=== PATIENT | male | born 1985 | race Caucasian/White ===

== ENCOUNTER → 2017-09-05 | Outpatient (CLI) | payer BC ==
--- NOTE | 2017-09-05 07:52 | US ---
EXAMINATION TYPE: US abdomen limited DATE OF EXAM: 09/05/2017 COMPARISON: NONE CLINICAL HISTORY: R10.9 abdominal pain Unspecified. Palpable left iliac crest noted x 2 months and ca uses pain and burning with exertion. At patient's palpable is solid, oval, isoechoic to slightly hyperechoic mass = 1.1 x 1.7 x 0.6cm and does not change in appearance with Valsalva Maneuver, nor does surrounding tissue change with exertio n motion of abdomen. IMPRESSION: Isoechoic to slightly hyperechoic 1.7 cm mass corresponding to the patient's palpable ab normality. This may represent a lipoma as it is circumscribed on most images or evolving ecchymosis/h ematoma/fat necrosis as few images demonstrate slightly irregular borders. Therefore short-term follo w-up is recommended to ensure resolution if there is continued clinical concern in 1-3 months.
== END | disposition home or self-care (01) ==
LOC: RADUSWWP 07:02
PROVIDERS: ATTEND Family Medicine
DX: R10.9 Unspecified abdominal pain (principal)
CPT/HCPCS: 76705

== ENCOUNTER → 2017-12-14 | Day surgery (SDC) | payer BC ==
[2017-12-09 15:23] VITALS: BMI 35.9
[~2017-12-14] MED LIST: DEXAMETHASONE SOD PHOSPHATE 10 MG/ML 1 ML VIAL IV ONE; HEPARIN SODIUM,PORCINE 5,000 UNIT/ML 1 ML VIAL SQ ONE; HYDROcodone/APAP 5-325MG 1 EACH TAB PO PRN; LACTATED RINGERS 1,000 ML IV SCH; LIDOCAINE 1% 20 ML VIAL (10MG/ML) FOR IV START INTRADERMA PRN; LIDOCAINE 1%-EPI 1:100,000 30 ML VIAL SQ ONE; MIDAZOLAM 2 MG/2 ML VIAL IV PRN; MIDAZOLAM 2 MG/2 ML VIAL ONE; NALOXONE 0.4 MG/ML 1 ML VIAL IV PRN; ONDANSETRON 4 MG/2 ML VIAL IVP ONE; PROPOFOL 10 MG/ML 20 ML VIAL IV ONE; Pre Op ABX Message 1 EACH MISC MISCELLANE ONE; fentaNYL (PF) 50 MCG/ML 2 ML AMP IV PRN; fentaNYL (PF) 50 MCG/ML 2 ML AMP ONE
[2017-12-14 07:58] VITALS: TEMP 98.1
--- NOTE | 2017-12-14 09:34 | P.OP ---
Date of Procedure: 12/14/17 Procedure(s) Performed: PREOPERATIVE DIAGNOSIS: Left abdominal and left arm mass POSTOPERATIVE DIAGNOSIS: Same PROCEDURE: Excision above lesions SURGEON: Delano EBL: Minimal ANESTHESIA: Sedation COMPLICATIONS: None OPERATIVE PROCEDURE: Patient place in the operating table in the supine position. The patient was sedated per anesthesia. The left abdominal wall in the left arm were prepped and draped in the usual sterile fashion. The skin was localized at both locations using 1% lidocaine with epi. A small incision was made overlying the left lower quadrant abdominal wall mass. Dissection through the subcutaneous tissues took place using electrocautery. The lipomatous mass was excised at that time. This measured 2.5 cm in size. The subcutaneous tissues were closed using 3-0 Vicryl sutures and the skin using a running 4-0 Monocryl stitch. The left arm was then addressed in a similar fashion. A small incision was made overlying the palpable mass. This lesion measured about 1 cm. This was fully excised. The skin was closed using a 4-0 Monocryl stitch. Steri-Strips and sterile dressings were applied. DISPOSITION: Stable to recovery room
[2017-12-14 09:39] VITALS: RESP 18
[2017-12-14 09:57] VITALS: BP 105/74; PULSE 65
== END ==
LOC: OR 07:16
PROVIDERS: ATTEND Surgery
DX: D17.1 Benign lipomatous neoplasm of skin and subcutaneous tissue of trunk (principal); D17.22 Benign lipomatous neoplasm of skin and subcutaneous tissue of left arm; F17.210 Nicotine dependence, cigarettes, uncomplicated; Z88.6 Allergy status to analgesic agent; Z91.018 Allergy to other foods; Z88.0 Allergy status to penicillin; Z88.2 Allergy status to sulfonamides
CPT/HCPCS: 22902; 24075; 88304; J2250; J1644; J1100; J2405; J3010; J2704

== ENCOUNTER → 2018-09-12 | Outpatient (CLI) | payer BC ==
--- NOTE | 2018-09-12 14:48 | CT ---
EXAMINATION TYPE: CT sinus wo con DATE OF EXAM: 09/12/2018 COMPARISON: Sinus and ear infections HISTORY: Bilateral ear infections and sinus infection x [address] DLP: 660.9 mGycm. Automated Exposure Control for Dose Reduction was Utilized. TECHNIQUE: CT scan of the sinuses is performed without contrast, axial images are obtained, coronal r eformatted images are also reviewed. FINDINGS: There is a mucous retention cyst involving the inferior left maxillary antrum. Mild mucosal thickening involving the ethmoid air cells. There is a nasal septal deviation.. The ostiomeatal com plex is patent bilaterally on the coronal images. Visualized portion of mastoid air cells show no abnormal opacification. The globes are intact bilate rally. IMPRESSION: 1. Findings compatible with mild chronic sinusitis..
== END ==
LOC: RADCTMAIN 12:50
PROVIDERS: ATTEND Family Medicine
DX: J32.9 Chronic sinusitis, unspecified (principal)
CPT/HCPCS: 70486

== ENCOUNTER 2019-12-01 00:08 | Emergency (ER) | payer BC ==
[2019-12-01 00:14] VITALS: BP 129/84; PULSE 97; RESP 16; TEMP 98.6
[2019-12-01] MEDS ORDERED: ACET/COD 300 MG/30 MG STARTER PACK 6 TAB BTL PO STA (00:22)
--- NOTE | 2019-12-01 00:44 | XR ---
EXAMINATION TYPE: XR ankle complete RT DATE OF EXAM: 12/01/2019 COMPARISON: NONE HISTORY: Pain and swelling TECHNIQUE: 3 views FINDINGS: There is soft tissue swelling over the lateral malleolus. Ankle mortise is anatomic. I see no fracture nor dislocation. Joint spaces are normal. IMPRESSION: Soft tissue swelling. No fracture seen.
--- NOTE | 2019-12-01 01:05 | ED ---
General Adult HPI - General Chief complaint: Extremity Injury, Lower Stated complaint: RT ankle injury Time Seen by Provider: 12/01/19 00:19 Source: patient Mode of arrival: wheelchair Limitations: no limitations - History of Present Illness Initial comments: 34-year-old male patient presents to the emergency department today for evaluation of right ankle pain and swelling. Patient states about a half hour prior to arrival he was stepping out of his jeep, states he caught his heel on the running board which caused him to land hard on the right foot while in was inverted over the lateral aspect. He should states that he heard a snapping sound when this occurred. Patient states he is having difficulty ambulating on the ankle so he presented here for further evaluation. He denies numbness or tingling to the foot. Did have previous fracture and ligament injury to this ankle. He denies falling, hitting his head, losing consciousness. Denies any other injuries. Patient denies any headache, neck pain, back pain, chest pain, shortness of breath, dizziness, weakness, abdominal pain, nausea, vomiting, or difficulties with bowel movements or urination. - Related Data Previous Rx's Medication Instructions Recorded Hydrocodone/Acetaminophen [[place] 1 - 2 each PO Q4HR PRN #15 tab 12/14/17 5-325] Allergies Allergy/AdvReac Type Severity Reaction Status Date / Time NSAIDS (Non-Steroidal Allergy Severe Anaphylaxis Verified 12/01/19 00:14 Anti-Inflamma amoxicillin Allergy Anaphylaxis Verified 12/01/19 00:14 peanut Allergy Unknown Verified 12/01/19 00:14 Penicillins Allergy Anaphylaxis Verified 12/01/19 00:14 Review of Systems ROS Statement: Those systems with pertinent positive or pertinent negative responses have been documented in the HPI. ROS Other: All systems not noted in ROS Statement are negative. Past Medical History Additional Past Medical History / Comment(s): CYSTS TO ABD. AND LT ELBOW History of Any Multi-Drug Resistant Organisms: None Reported Past Surgical History: Adenoidectomy, Appendectomy, Tonsillectomy Additional Past Surgical History / Comment(s): RECONSTRUCTIVE SX TO LT EARDRUM Past Anesthesia/Blood Transfusion Reactions: No Reported Reaction Past Psychological History: No Psychological Hx Reported Past Alcohol Use History: None Reported Past Drug Use History: Marijuana - Past Family History Mother Family Medical History: No Reported History General Exam Limitations: no limitations General appearance: alert, in no apparent distress, other (This is a well- developed, well-nourished adult male patient in no acute distress. Vital signs upon presentation are temperature 98.6F, pulse 97, respiration 16, blood pressure 129/84, pulse ox 100% on room air.) Cardiovascular Exam: Present: regular rate, normal rhythm, normal heart sounds. Absent: systolic murmur, diastolic murmur, rubs, gallop, clicks GI/Abdominal exam: Present: soft, normal bowel sounds. Absent: distended, tenderness, guarding, rebound, rigid Extremities exam: Present: normal inspection, full ROM, tenderness (Right lateral malleolus), normal capillary refill, other (Swelling and tenderness surrounding the right lateral malleolus. There is no fifth metarsal or proximal tib fib tenderness. skin to the right foot is pink, warm, dry. Cap refills less than 3 seconds. Pedal posttibial pulses are 2+ and equal bilaterally.). Absent: pedal edema, joint swelling, calf tenderness Neurological exam: Present: alert, oriented X3, CN II-XII intact Psychiatric exam: Present: normal affect, normal mood Skin exam: Present: warm, dry, intact, normal color. Absent: rash Course Vital Signs 12/01/19 00:09 Temperature 98.6 F Pulse Rate 97 Respiratory 16 Rate Blood Pressure 129/84 O2 Sat by Pulse 100 Oximetry Medical Decision Making - Medical Decision Making 34-year-old male patient presents to the emergency department today for evaluation of right ankle pain and swelling after an injury. Physical examination did reveal soft tissue swelling surrounding the right lateral malleolus. He is also tenderness around this region. No fifth metatarsal or proximal tib-fib tenderness. Neurovascular status is intact. X-ray was obtained and showed no acute fracture. Agent symptoms are consistent with an ankle sprain. We placed in ankle stirrup splint. He is given a prescription for crutches. He is instructed to weight-bear as tolerated. He is instructed to follow up with his primary care physician for recheck in 1-2 days. Is instructed to have repeat x-rays performed in 7-10 days of his pain symptoms persist. He was educated regarding rest, ice, elevation. Return parameters were discussed in detail. He verbalizes understanding and agrees with this plan. - Radiology Data Radiology results: report reviewed, image reviewed 3 views of the right ankle are obtained. Report was reviewed in its entirety. Impression by Dr. Nuno shows soft tissue swelling. No fracture seen. Disposition Clinical Impression: Right ankle sprain Disposition: HOME SELF-CARE Condition: Good Instructions (If sedation given, give patient instructions): Ankle Sprain (ED) Additional Instructions: Rest, ice, elevate the right ankle. Use splint for comfort and support. Follow-up with your primary care physician for recheck in 1-2 days. Have repeat x-rays performed in 7-10 days if pain symptoms persist. Return to the emergency department immediately for any new, worsening, or concerning symptoms. Is patient prescribed a controlled substance at d/c from ED?: No Referrals: Demarcus Womack MD [Primary Care Provider] - 1-2 days Time of Disposition: 01:04
== END 2019-12-01 01:26 | disposition home or self-care (01) ==
LOC: EC 00:08
DX: S93.401A Sprain of unspecified ligament of right ankle, initial encounter (principal); Z88.6 Allergy status to analgesic agent; Z88.0 Allergy status to penicillin; Z91.010 Allergy to peanuts; W18.41XA Slipping, tripping and stumbling without falling due to stepping on object, initial encounter
CPT/HCPCS: 73610; 99283; L4350

== ENCOUNTER → 2020-07-23 | Outpatient (CLI) | payer BC ==
--- NOTE | 2020-07-23 14:12 | US ---
EXAMINATION TYPE: US abdomen complete DATE OF EXAM: 07/23/2020 COMPARISON: NONE CLINICAL HISTORY: R10.11 right upper quad pain. RUQ pain x 1 month, gets worse after eating EXAM MEASUREMENTS: Liver Length: 16.5 cm Gallbladder Wall: 0.2 cm CBD: 0.3 cm Spleen: 12.2 cm Right Kidney: 10.1 x 5.8 x 4.7 cm Left Kidney: 11.0 x 6.0 x 5.7 cm Pancreas: obscured by overlying midline bowel gas Liver: wnl Gallbladder: possible sludge seen Evidence for sonographic Mcallister's sign: no CBD: visualized portions wnl, limited by overlying bowel gas Spleen: wnl Right Kidney: wnl Left Kidney: wnl Upper IVC: wnl Abd Aorta: proximal portion obscured by overlying midline bowel gas, mid and distal portions appear wnl IMPRESSION: 1. Some limitation due to bowel gas. 2. Visualized abdomen ultrasound is otherwise unremarkable.
== END ==
LOC: RADUSWWP 07:37
PROVIDERS: ATTEND Family Medicine
DX: R10.11 Right upper quadrant pain (principal)
CPT/HCPCS: 76700

== ENCOUNTER → 2023-09-27 | Outpatient (CLI) | payer BC ==
--- NOTE | 2023-09-28 07:02 | CT ---
EXAMINATION TYPE: CT iac wo con DATE OF EXAM: 09/27/2023 COMPARISON: NONE HISTORY: Cholesteatoma of tympanum, LT ear CT DLP: 150 mGycm. Automated Exposure Control for Dose Reduction was Utilized. TECHNIQUE: CT scan of internal auditory canal is performed without contrast, thin cut axial images ar e obtained, coronal reformatted images are also reviewed. FINDINGS: The external auditory canals are patent bilaterally. Mastoid air cells show no evidence of abnormal opacification bilaterally. The middle ear ossicles are symmetric and unremarkable. There is no evidence of suspicious surroundi ng soft tissue density to suggest cholesteatoma. The scutum is preserved bilaterally. The cochlea and the semicircular canals are symmetric and unremarkable. Satisfactory superior bony ov er coverage of the superior semicircular canal bilaterally, no dehiscence is evident. Vestibular aque duct and internal carotid canal appear unremarkable. Temporomandibular joints are maintained bilaterally. Visualized paranasal sinuses are grossly clear. Visualized portion brain parenchyma is felt within normal limits. IMPRESSION: No significant abnormality seen to account for patient's symptoms.
== END | disposition home or self-care (01) ==
LOC: RADCTMAIN 12:05
PROVIDERS: ATTEND Otolaryngology Otology & Neurotology
DX: H71.12 Cholesteatoma of tympanum, left ear (principal); H69.93 Unspecified Eustachian tube disorder, bilateral
CPT/HCPCS: 70480

== ENCOUNTER 2024-07-01 02:19 | Emergency (ER) | payer BC ==
[2024-07-01 02:29] VITALS: RESP 18; TEMP 98
--- NOTE | 2024-07-01 02:49 | ED ---
General Adult HPI - General Chief complaint: Chest Pain Stated complaint: Chest heaviness Time Seen by Provider: 07/01/24 02:24 Source: patient, RN notes reviewed, old records reviewed Mode of arrival: ambulatory Limitations: no limitations - History of Present Illness Initial comments: 38-year-old male presenting with chest heaviness. Symptoms began just prior to arrival approximately 2 hours ago. Patient denies history of cardiac disease but states he has a strong family history of CAD. He states he is following with his primary care provider regarding several week history of bilateral hand swelling. Primary care provider is worried about rheumatoid arthritis and workup is pending as an outpatient. He denies swelling in the feet or ankles. Denies vomiting. States he did feel somewhat lightheaded. - Related Data Previous Rx's Medication Instructions Recorded Hydrocodone/Acetaminophen [[place] 1 - 2 each PO Q4HR PRN #15 tab 12/14/17 5-325] Allergies Allergy/AdvReac Type Severity Reaction Status Date / Time NSAIDS (Non-Steroidal Allergy Severe Anaphylaxis Verified 07/01/24 02:29 Anti-Inflamma amoxicillin Allergy Anaphylaxis Verified 07/01/24 02:29 peanut Allergy Unknown Verified 07/01/24 02:29 Penicillins Allergy Anaphylaxis Verified 07/01/24 02:29 ciprofloxacin [From Cipro] AdvReac Unknown Verified 07/01/24 02:29 sulfamethoxazole AdvReac Swelling Verified 07/01/24 02:29 [From Bactrim] trimethoprim [From Bactrim] AdvReac Swelling Verified 07/01/24 02:29 Review of Systems ROS Statement: Those systems with pertinent positive or pertinent negative responses have been documented in the HPI. ROS Other: All systems not noted in ROS Statement are negative. Past Medical History Additional Past Medical History / Comment(s): CYSTS TO ABD. AND LT ELBOW History of Any Multi-Drug Resistant Organisms: None Reported Past Surgical History: Adenoidectomy, Appendectomy, Tonsillectomy Additional Past Surgical History / Comment(s): RECONSTRUCTIVE SX TO LT EARDRUM Past Anesthesia/Blood Transfusion Reactions: No Reported Reaction Past Psychological History: No Psychological Hx Reported Smoking Status: Current every day smoker Past Alcohol Use History: Rare Past Drug Use History: Marijuana - Past Family History Mother Family Medical History: No Reported History General Exam Limitations: no limitations General appearance: alert, in no apparent distress Head exam: Present: atraumatic, normocephalic Eye exam: Present: normal appearance, PERRL ENT exam: Present: normal exam Neck exam: Present: normal inspection. Absent: tenderness, meningismus Respiratory exam: Present: normal lung sounds bilaterally. Absent: respiratory distress, wheezes Cardiovascular Exam: Present: regular rate, normal rhythm GI/Abdominal exam: Present: soft. Absent: distended, tenderness, guarding Extremities exam: Present: normal capillary refill, other (Bilateral hand swelling). Absent: pedal edema Neurological exam: Present: alert, oriented X3, CN II-XII intact. Absent: motor sensory deficit Psychiatric exam: Present: normal affect, normal mood Skin exam: Present: warm, dry, intact Course Vital Signs 07/01/24 07/01/24 02:24 03:35 Temperature 98.0 F Pulse Rate 98 94 Respiratory 18 18 Rate Blood Pressure 145/94 131/76 O2 Sat by Pulse 98 96 Oximetry - Reevaluation(s) Reevaluation #1: 07/01/24 04:38 Patient's chest discomfort is resolved currently Medical Decision Making - Medical Decision Making Was pt. sent in by a medical professional or institution (, PA, WET PROCESS ASSISTANT HEAD MILLER, urgent care, hospital, or longterm...) When possible be specific @ -No Did you speak to anyone other than the patient for history (EMS, parent, family, police, friend...)? What history was obtained from this source @ -No Did you review nursing and triage notes (agree or disagree)? Why? @ -I reviewed and agree with nursing and triage notes Were old charts reviewed (outside hosp., previous admission, EMS record, old EKG, old radiological studies, urgent care reports/EKG's, longterm records)? Report findings @ -No old charts were reviewed Differential Chest Pain: Stable Angina, Unstable Angina, STEMI, NSTEMI Aortic Dissection, Pneumothorax, Musculoskeletal, Esophageal Spasm GERD, Cholecystitis, Pancreatitis, Zoster, this is not meant to be an all-inclusive list. EKG interpreted by me (3pts min.). @ -Sinus rhythm incomplete right bundle branch block rate of 93, HI interval 158, QRS duration 108, QTc [address] segment elevation. X-rays interpreted by me (1pt min.). @ -Chest x-ray negative for acute cardiopulmonary findings CT interpreted by me (1pt min.). @ -None done U/S interpreted by me (1pt. min.). @ -None done What testing was considered but not performed or refused? (CT, X-rays, U/S, labs)? Why? @ -None What meds were considered but not given or refused? Why? @ -None Did you discuss the management of the patient with other professionals (pro fessionals i.e. , PA, WET PROCESS ASSISTANT HEAD MILLER, lab, RT, psych nurse, director of social media marketing, ob/gyn, teacher, ordnance corps officer, telephonic nurse case manager)? Give summary @ -No Was smoking cessation discussed for >3mins.? @ -No Was critical care preformed (if so, how long)? @ -No Were there social determinants of health that impacted care today? How? (Homelessness, low income, unemployed, alcoholism, drug addiction, transportation, low edu. Level, literacy, decrease access to med. care, usp, rehab)? @ -No Was there de-escalation of care discussed even if they declined (Discuss DNR or withdrawal of care, Hospice)? DNR status @ -No What co-morbidities impacted this encounter? (DM, HTN, Smoking, COPD, CAD, Cancer, CVA, ARF, Chemo, Hep., AIDS, mental health diagnosis, sleep apnea, morbid obesity)? @ -None Was patient admitted / discharged? Hospital course, mention meds given and route, prescriptions, significant lab abnormalities, going to OR and other pertinent info. @ -[8-year-old male with a chest discomfort. No diaphoresis or vomiting. Patient is currently on steroids for a several week history of bilateral hand swelling. No leg or foot swelling. No calf tenderness. EKG is sinus without ST segment elevation. Chest x-ray is clear. He has a mild leukocytosis which I suspect is from steroid use. Patient has normal CMP, negative D-dimer, negative troponin. Patient is reassured by lab testing. He states he has an appointment on Tuesday with his primary care provider and he would be comfortable with discharge at this time with return parameters. Undiagnosed new problem with uncertain prognosis? @ -No Drug Therapy requiring intensive monitoring for toxicity (Heparin, Nitro, Insulin, Cardizem)? @ -No Were any procedures done? @ -No Diagnosis/symptom? @ -Chest discomfort, resolved Acute, or Chronic, or Acute on Chronic? @Acute Uncomplicated (without systemic symptoms) or Complicated (systemic symptoms)? @ -Default Side effects of treatment? @ -No Exacerbation, Progression, or Severe Exacerbation? @ -No Poses a threat to life or bodily function? How? (Chest pain, USA, MS, pneumonia, PE, COPD, DKA, ARF, appy, cholecystitis, CVA, Diverticulitis, Homicidal, Suicidal, threat to staff... and all critical care pts) @Low risk at this time - Lab Data Result diagrams: 07/01/24 02:43 07/01/24 02:43 Lab Results 07/01/24 07/01/24 07/01/24 Range/Units 02:43 02:43 02:43 WBC 14.4 H (3.8-10.6) k/uL RBC 5.98 H (4.30-5.90) m/uL Hgb 17.6 H (13.0-17.5) gm/dL Hct 51.9 (39.0-53.0) % MCV 86.7 (80.0-100.0) fL MCH 29.4 (25.0-35.0) pg MCHC 33.9 (31.0-37.0) g/dL RDW 13.9 (11.5-15.5) % Plt Count 311 (150-450) k/uL MPV 6.9 Neutrophils % 68 % Lymphocytes % 22 % Monocytes % 6 % Eosinophils % 2 % Basophils % 1 % Neutrophils # 9.8 H (1.3-7.7) k/uL Lymphocytes # 3.1 (1.0-4.8) k/uL Monocytes # 0.9 (0-1.0) k/uL Eosinophils # 0.3 (0-0.7) k/uL Basophils # 0.1 (0-0.2) k/uL PT 10.6 (10.0-12.5) sec INR 1.0 (<1.2) APTT 23.8 (22.0-30.0) sec D-Dimer <0.17 (<0.60) mg/L FEU Sodium 139 (137-145) mmol/L Potassium 4.0 (3.5-5.1) mmol/L Chloride 102 (98-107) mmol/L Carbon Dioxide 25 (22-30) mmol/L Anion Gap 12 mmol/L BUN 8 L (9-20) mg/dL Creatinine 1.03 (0.66-1.25) mg/dL Est GFR (CKD-EPI)AfAm >90 (>60 ml/min/1.73 sqM) Est GFR (CKD-EPI)NonAf >90 (>60 ml/min/1.73 sqM) Glucose 104 H (74-99) mg/dL Calcium 9.9 (8.4-10.2) mg/dL Magnesium 1.9 (1.6-2.3) mg/dL Total Bilirubin 0.7 (0.2-1.3) mg/dL AST 38 (17-59) U/L ALT 43 (4-49) U/L Alkaline Phosphatase 68 (38-126) U/L Troponin I (0.000-0.034) ng/mL NT-Pro-B Natriuret Pep 61 pg/mL Total Protein 7.2 (6.3-8.2) g/dL Albumin 4.5 (3.5-5.0) g/dL Influenza Type A (PCR) (Not Detectd) Influenza Type B (PCR) (Not Detectd) RSV (PCR) (Not Detectd) SARS-CoV-2 (PCR) (Not Detectd) 07/01/24 07/01/24 Range/Units 02:43 02:45 WBC (3.8-10.6) k/uL RBC (4.30-5.90) m/uL Hgb (13.0-17.5) gm/dL Hct (39.0-53.0) % MCV (80.0-100.0) fL MCH (25.0-35.0) pg MCHC (31.0-37.0) g/dL RDW (11.5-15.5) % Plt Count (150-450) k/uL MPV Neutrophils % % Lymphocytes % % Monocytes % % Eosinophils % % Basophils % % Neutrophils # (1.3-7.7) k/uL Lymphocytes # (1.0-4.8) k/uL Monocytes # (0-1.0) k/uL Eosinophils # (0-0.7) k/uL Basophils # (0-0.2) k/uL PT (10.0-12.5) sec INR (<1.2) APTT (22.0-30.0) sec D-Dimer (<0.60) mg/L FEU Sodium (137-145) mmol/L Potassium (3.5-5.1) mmol/L Chloride (98-107) mmol/L Carbon Dioxide (22-30) mmol/L Anion Gap mmol/L BUN (9-20) mg/dL Creatinine (0.66-1.25) mg/dL Est GFR (CKD-EPI)AfAm (>60 ml/min/1.73 sqM) Est GFR (CKD-EPI)NonAf (>60 ml/min/1.73 sqM) Glucose (74-99) mg/dL Calcium (8.4-10.2) mg/dL Magnesium (1.6-2.3) mg/dL Total Bilirubin (0.2-1.3) mg/dL AST (17-59) U/L ALT (4-49) U/L Alkaline Phosphatase (38-126) U/L Troponin I <0.012 (0.000-0.034) ng/mL NT-Pro-B Natriuret Pep pg/mL Total Protein (6.3-8.2) g/dL Albumin (3.5-5.0) g/dL Influenza Type A (PCR) Not Detected (Not Detectd) Influenza Type B (PCR) Not Detected (Not Detectd) RSV (PCR) Not Detected (Not Detectd) SARS-CoV-2 (PCR) Not Detected (Not Detectd) Disposition Clinical Impression: Atypical chest pain Disposition: HOME SELF-CARE Condition: Fair Instructions (If sedation given, give patient instructions): Chest Pain (ED) Is patient prescribed a controlled substance at d/c from ED?: No Referrals: Demarcus Womack MD [Primary Care Provider] - 1-2 days Time of Disposition: 04:41
[2024-07-01 02:55] LABS: Basophils # (A) 0.1 k/uL (0-0.2); Basophils % (A) 1 %; Eosinophils # (A) 0.3 k/uL (0-0.7); Eosinophils % (A) 2 %; HCT 51.9 % (39.0-53.0); HGB 17.6 gm/dL (13.0-17.5); Lymphocytes # (A) 3.1 k/uL (1.0-4.8); Lymphocytes % (A) 22 %; MCH 29.4 pg (25.0-35.0); MCHC 33.9 g/dL (31.0-37.0); MCV 86.7 fL (80.0-100.0); Mean Platelet Volume 6.9; Monocytes # (A) 0.9 k/uL (0-1.0); Monocytes % (A) 6 %; Neutrophils # (A) 9.8 k/uL (1.3-7.7); Neutrophils % (A) 68 %; Platelet Count 311 k/uL (150-450); RBC 5.98 m/uL (4.30-5.90); RDW 13.9 % (11.5-15.5); WBC 14.4 k/uL (3.8-10.6)
[2024-07-01 03:07] LABS: ALT 43 U/L (4-49); AST 38 U/L (17-59); African American GFR (CKD) >90 (>60 ml/min/1.73 sqM); Albumin 4.5 g/dL (3.5-5.0); Alkaline Phosphatase 68 U/L (38-126); Anion Gap 12 mmol/L; Blood Urea Nitrogen 8 mg/dL (9-20); Calcium 9.9 mg/dL (8.4-10.2); Carbon Dioxide 25 mmol/L (22-30); Chloride 102 mmol/L (98-107); Glucose 104 mg/dL (74-99); Magnesium 1.9 mg/dL (1.6-2.3); Non-African American GFR(CKD) >90 (>60 ml/min/1.73 sqM); Sodium 139 mmol/L (137-145); Total Bilirubin 0.7 mg/dL (0.2-1.3); Total Protein 7.2 g/dL (6.3-8.2)
[2024-07-01 03:14] LABS: NT-Pro-B-Type Natriuretic Pept 61 pg/mL
--- NOTE | 2024-07-01 03:30 | XR ---
EXAM: XR Chest, 2 Views CLINICAL HISTORY: ITS.REASON XR Reason: Chest Pain TECHNIQUE: Frontal and lateral views of the chest. COMPARISON: No relevant prior studies available. FINDINGS: Lungs: No consolidation or mass. Pleural space: No effusion. Heart: Mild cardiomegaly. Bones/joints: No acute findings. IMPRESSION: No acute cardiopulmonary process.
[2024-07-01 03:35] LABS: Influenza A Not Detected (Not Detectd); Influenza B Not Detected (Not Detectd); RSV Not Detected (Not Detectd)
[2024-07-01 04:14] LABS: Partial Thromboplastin Time 23.8 sec (22.0-30.0); Prothrombin Time 10.6 sec (10.0-12.5)
[2024-07-01 04:50] VITALS: BP 125/74; PULSE 87
== END 2024-07-01 04:58 | disposition home or self-care (01) ==
LOC: EC 02:19
DX: R07.89 Other chest pain (principal); F17.200 Nicotine dependence, unspecified, uncomplicated; Z88.0 Allergy status to penicillin; Z88.1 Allergy status to other antibiotic agents; Z88.2 Allergy status to sulfonamides; Z88.6 Allergy status to analgesic agent; Z91.010 Allergy to peanuts
CPT/HCPCS: 36415; 71046; 80053; 83735; 83880; 84484; 85025; 85379; 85610; 85730; 87636; 93005; 99285